=== PATIENT | female | born 1985 | race Caucasian/White ===

== ENCOUNTER 2020-02-06 04:55 | Inpatient (IN) ==
[2020-02-06] MEDS ORDERED: Oxytocin/Ringers Lactate 20 UNITS/1,000 ML BAG IV ONE (05:09)
[2020-02-06] MEDS: RINGER'S SOLUTION,LACTATED 1,000 ML IV PRN ×2 (05:15→06:22)
--- NOTE | 2020-02-06 06:42 | ANES ---
Anesthesia Pre Procedure Eval Vitals/Labs: Last Vital Signs Temp 36.5 C 02/06/20 05:05 Pulse 93 02/06/20 05:05 Resp 18 02/06/20 05:05 BP 116/75 02/06/20 05:05 Pulse Ox 100 02/06/20 05:05 HOME MEDICATIONS ferrous sulfate 325 mg (65 mg iron) tablet,delayed release 325 mg PO DAILY 06/30/19 [Last Taken 02/05/20] prenat.vits,heather,htw-eajq-jwebt 1 tab PO DAILY 06/30/19 [Last Taken 02/05/20] breast pump See Rx Instructions .ROUTE .MEDSUPPLY #1 ea 01/25/20 [Last Taken Unknown] Allergies/Adverse Reactions: Allergies Allergy/AdvReac Type Severity Reaction Status Date / Time bacitracin Allergy RASH Verified 02/06/20 05:37 [From Neosporin Plus] bacitracin zinc Allergy RASH Verified 02/06/20 05:37 [From Neosporin Plus] lidocaine Allergy RASH Verified 02/06/20 05:37 [From Neosporin Plus] neomycin sulfate Allergy RASH Verified 02/06/20 05:37 [From Neosporin Plus] polymyxin B Allergy RASH Verified 02/06/20 05:37 [From Neosporin Plus] polymyxin B sulfate Allergy RASH Verified 02/06/20 05:37 [From Neosporin Plus] pramoxine Allergy RASH Verified 02/06/20 05:37 [From Neosporin Plus] pramoxine HCl Allergy RASH Verified 02/06/20 05:37 [From Neosporin Plus] suture Allergy unknown- Verified 02/06/20 05:37 had to reopen incision - Planned Procedure Planned Procedure: Repeat C Section w/poss abdominal scar revision Medication List Reviewed:: Yes Allergies Verified: Yes Medical History (Last Reviewed 02/06/20 @ 06:40 by Willy Vu CRNA) History of ectopic (Chronic) History of gestational diabetes mellitus (GDM) (Chronic) Body piercing Onset Date: Unknown Wears glasses Onset Date: Unknown Anemia Onset Date: ~2007 Breech presentation Onset Date: 12/03/15 COVID-19 affecting in third trimester Onset Date: 01/19/20 Ectopic Onset Date: 12/26/18 Ectopic (Resolved) s/p left salpingostomy Gestational diabetes Onset Date: 10/01/15 Oligohydramnios Onset Date: 12/03/15 Velamentous insertion of umbilical cord Onset Date: 11/12/15 Vitamin D insufficiency Onset Date: ~2007 Asthma Onset Date: Unknown as a child. unsure if any hospitalizations. last attack as a child. Surgical History (Last Reviewed 02/06/20 @ 06:40 by Willy Vu CRNA) Previous section (Chronic) delivery delivered Onset Date: 12/11/15 d/t breech presentation History of laparoscopy Onset Date: 12/26/18 w/left salpingostomy, excision of ectopic , left ovarian cystotomy Rosine teeth extracted Onset Date: ~2007 Family History (Last Reviewed 02/06/20 @ 06:40 by Willy Vu CRNA) Mother Asthma Diabetes Pre-diabetic Allergies Bronchitis Sister Seizures Grandmother FH: ALS (amyotrophic lateral sclerosis) Grandfather Myocardial infarction Other No pertinent family history - Family Anesthesia History Family History:: no untoward family reactions to anesthesia, no familial bleeding tendencies, no family history of clotting disorders, no family history of premature - Airway/Neck/Teeth Within Normal Limits:: Yes Teeth Condition: intact Neck Exam: full range of motion Mallampatti Score: 2 Thyromental (T-M) distance: > 6 cm Mandibulo Hyoid distance: > 3 cm - Respiratory Respiratory Physical: lungs clear Sleep Apnea currently treated: No Sleep Apnea by current assessment: No - Cardiovascular Tolerate Activity: Fair Heart Sounds: S1 & S2, Regular - Gastrointestinal NPO since: 2400 - Anesthesia Assessment and Plan ASA Class: PS, II Anesthesia Type Plan: Block - Bilateral TAP block for post op pain releif, Spinal
[2020-02-06] MEDS ORDERED: BUPIVACAINE HCL/EPINEPHRINE 50 ML VIAL IJ ONE (06:44)
[2020-02-06] MEDS ORDERED: ceFAZolin SODIUM 1 GM VIAL ONE (07:37)
[2020-02-06] MEDS ORDERED: BUPIVACAINE HCL/PF 10 ML VIAL ONE (08:01)
[2020-02-06] MEDS ORDERED: SENNOSIDES 8.6 MG TABLET PO PRN (09:08)
[2020-02-06] MEDS ORDERED: BISACODYL 10 MG SUPP.RECT RC PRN (09:08)
[2020-02-06] MEDS ORDERED: ONDANSETRON HCL/PF 2 MG/ML VIAL IV PRN (09:08)
[2020-02-06] MEDS ORDERED: SIMETHICONE 80 MG TAB.CHEW PO PRN (09:08)
[2020-02-06] MEDS ORDERED: RINGER'S SOLUTION,LACTATED 1,000 ML IV ONE (09:08)
--- NOTE | 2020-02-06 09:14 | OR ---
Operative Report - Dictated Report Narrative: Indication: 34-year-old 3 para 2 with prior section x2 desires repeat low transverse section. status: Planned Pre Operative Diagnosis: 39 4/7-week intrauterine . Prior section x2. Post Operative Diagnosis: Same. Procedure: Repeat low transverse section. Surgeon: Chris Borjas DO Mixer Pigment: OR Staff Anesthesia: Spinal, TAP block Estimated Blood Loss: 500 mL Urine Output: 140 mL clear urine Fluids Replacement: 1700 mL of crystalloid Drains: Fong to gravity Surgical Complications: None Specimens: Placenta to freezer Findings: Male born at 0817 on 02/06/2020 with Apgars 9 and 9, weighing 3291 g in cephalic presentation. Normal uterus, tubes, ovaries Technique: The patient was taken to the operating room and placed in dorsal supine position with a left lateral tilt. After adequate spinal anesthesia, fong catheter inserted, SCDs placed, and 2 g of Ancef given preoperatively, the abdominal cavity was entered using sharp and blunt dissection. Two rolled laps were placed in the pericolic gutters on either side of the uterus. A transverse incision was made in the lower uterine segment and extended laterally and upwardly with digital traction. Clear fluid was noted upon amniotomy. The infant's head was deep in the pelvis and required a vacuum to deliver. The vacuum was placed at the vertex and pumped to 500 mmHg. There was 1 pop- off. The second application resulted in the delivery of the head. Total vacuum application time was less than 30 seconds. The rest of the infant's body delivered easily. The cord was clamped and cut after approximately 30 seconds and was handed off to awaiting rotary cutter feeder. The placenta was allowed to deliver spontaneously. The uterus was cleared of clot and debris. Uterine incision was closed with 0 Vicryl using a running stitch. A second imbricating layer was placed. 3 bxloch-ev-[id number] sutures were placed on either end and in the middle to provide excellent hemostasis. The rolled laps were removed from the abdominal cavitiy. The peritoneum was closed with a running 3-0 Monocryl. The same suture was used to approximate the rectus and pyramidalis muscles. The fascia was closed with a running 0 Vicryl. The subcutaneous layer was closed with a running 3-0 Monocryl. The same suture was used to approximate the subdermal layer. The skin was closed with a running 4-0 Monocryl and Dermabond. Sponge, lap, needle, and instrument count were correct x 2. Disposition: To post anesthesia care unit in good condition History for MU History for MU Definition: * The number of deliveries resulting in a live the patient experienced prior to current hospitalization * The previous delivery of live twins or any live multiple gestation is considered one live event. *If primagravida or nulliparous is documented select zero for the number of previous live births. Live Events: Live Events: 2
[2020-02-06] MEDS ORDERED: NON-FORMULARY 1 DOSE DOSE (Breast Pump device) SCH (09:15)
--- NOTE | 2020-02-06 09:21 | ANES ---
Anesthesia Procedure Note Procedure Note: ANESTHESIA PROCEDURE NOTE Date of Procedure: 02/06/2020 Time of procedure: 9:10 AM. Performed by: MARYURI Licea CRNA, MSN Patient Safety Tech: Juliet Montgomery RN. Preprocedure diagnosis: Post section pain. Post procedure diagnosis: Same. Procedure: Bilateral TAP block Indications: Post section pain relief. Findings: See below. Details of the procedure: The patient was brought to PACU and placed in the supine position. The patient was prepped with chlorhexidine and using ultrasound guidance the 3 abdominal muscular planes were identified and lidocaine 1% was infiltrated to the skin of the intended injection site. Under ultrasound guidance the the internal oblique and transverse this abdominis muscle layers were approached with visualization of a 4 inch block needle until the tip of the needle rested in the plane between the muscles. 25 mL bupivacaine 0.25% with 1-200,000 epinephrine was injected and the procedure was repeated on the other side. Please see radiology/ultrasound report for details and images of the procedure. EBL: 0 Fluids: N/A. Specimen: N/A. Post procedure condition: The patient tolerated the procedure well. No complications were noted. Thank you for this consultation. Willy Vu CRNA, ARNP, MSN
--- NOTE | 2020-02-06 09:21 | ANES ---
Post Anesthesia Discharge - Transfer of Care Transfer of Care handoff given to nurse: Yes - Discharge from PACU Discharge from PACU when meets criteria: Yes - more comfortable post TAP
[2020-02-06] MEDS: IBUPROFEN 800 MG TABLET PO PRN ×3 (09:36→22:06)
[2020-02-06] MEDS: oxyCODONE HCL/ACETAMINOPHEN 1 TAB TABLET PO PRN ×4 (09:36→20:10)
--- NOTE | 2020-02-06 10:30 | ANES ---
Post Anesthesia Assessment - Vital Signs Vitals: Last Vital Signs Temp 36.7 C 02/06/20 09:26 Pulse 90 02/06/20 09:26 Resp 18 02/06/20 09:26 BP 132/79 02/06/20 09:26 Pulse Ox 100 02/06/20 09:26 Airway Patency: Normal - Mental Status Level Of Consciousness: Awake, Alert, Appropriate - Pain Level Pain Score: 7 - N/V Assessment Nausea/Vomiting Presence: None Dehydration:: No
[2020-02-06] MEDS ORDERED: NIFEdipine 10 MG CAPSULE PO SCH (16:45)
[2020-02-06] MEDS: ENOXAPARIN SODIUM 40 MG/0.4 ML SYRG SC SCH (17:07)
[2020-02-06] MEDS: DOCUSATE SODIUM 100 MG CAPSULE PO SCH (20:10)
[2020-02-07] MEDS: oxyCODONE HCL/ACETAMINOPHEN 1 TAB TABLET PO PRN ×2 (05:04→14:14)
[2020-02-07] MEDS: IBUPROFEN 800 MG TABLET PO PRN ×2 (05:04→16:43)
[2020-02-07] MEDS ORDERED: ceFAZolin SODIUM 1 GM VIAL IV PRN (06:00)
[2020-02-07] MEDS: PRENATAL VITS96/IRON FUM/FOLIC 1 TAB TABLET PO SCH (09:21)
[2020-02-07] MEDS: DOCUSATE SODIUM 100 MG CAPSULE PO SCH ×2 (09:21→20:49)
[2020-02-07] MEDS: FERROUS SULFATE 325 MG TABLET PO SCH (09:21)
--- NOTE | 2020-02-07 15:28 | PN ---
Subjective - Date and Time Seen Date: 02/07/20 Time: 15:28 Objective - Vitals Vitals: Last Vital Signs Temp 36.4 C 02/07/20 15:09 Pulse 103 H 02/07/20 15:09 Resp 16 02/07/20 15:09 BP 118/71 02/07/20 15:09 Pulse Ox 99 02/07/20 15:09 Patient denies complaints. Tolerating regular diet. Ambulating without difficulty. Pain well controlled. Breast-feeding Lochia wnl. Abdomen - soft, appropriately tender Incision -clean, dry, intact uterus - firm, at umbilicus -1 No calf tenderness Impression: Post op day #1 s/p repeat section. Plan: Continue routine post-operative/ care Cauti Physician Documentation - Urinary Catheter Management Urethral (Oliveira) Date of Insertion: 02/06/20 Time of Insertion: 08:02
[2020-02-07] MEDS: ENOXAPARIN SODIUM 40 MG/0.4 ML SYRG SC SCH (17:45)
[2020-02-08] MEDS: oxyCODONE HCL/ACETAMINOPHEN 1 TAB TABLET PO PRN ×3 (00:20→07:18)
[2020-02-08] MEDS: IBUPROFEN 800 MG TABLET PO PRN ×3 (03:45→22:29)
--- NOTE | 2020-02-08 11:51 | PN ---
Subjective - Date and Time Seen Date: 02/08/20 Time: 10:15 Objective - Vitals Vitals: Last Vital Signs Temp 36.6 C 02/08/20 11:23 Pulse 97 02/08/20 11:23 Resp 18 02/08/20 11:23 BP 112/58 02/08/20 11:23 Pulse Ox 99 02/08/20 11:23 [Patient complains of headache 2-3 times throughout the night and this morning - timing of headache seems to be within an hour of receiving Percocet. Denies visual changes, epigastric pain, or increased swelling. Ambulating well. Tolerating regular diet. Pain well controlled.] Lochia wnl. Abdomen - soft, appropriately tender Incision - [clean, dry, intact] Uterus - firm, at umbilicus -[2] No calf tenderness, DTR-2/4, no clonus, no pitting edema Impression: Post op day #2 s/p repeat section. Headaches possibly due to narcotic medication. Plan: Continue routine post-operative/ care. Patient will stop taking narcotic pain medication and see if her headache returns. Continue to monitor closely for signs/symptoms of preeclampsia. Cauti Physician Documentation - Urinary Catheter Management Urethral (Oliveira) Date of Insertion: 02/06/20 Time of Insertion: 08:02
[2020-02-08] MEDS: FERROUS SULFATE 325 MG TABLET PO SCH (12:28)
[2020-02-08] MEDS: PRENATAL VITS96/IRON FUM/FOLIC 1 TAB TABLET PO SCH (12:28)
[2020-02-08] MEDS: DOCUSATE SODIUM 100 MG CAPSULE PO SCH ×2 (12:28→20:28)
[2020-02-08] MEDS: ENOXAPARIN SODIUM 40 MG/0.4 ML SYRG SC SCH (19:48)
--- NOTE | 2020-02-09 01:20 | DS ---
OB Discharge Summary Delivery Date: 02/06/20 Delivery Time: 08:17 :: 3 Para:: 2 Gestational weeks:: 39 Gestational days:: 2 Intrapartum Procedures: Delivered, Secondary Section, Delivery-Low Transverse, Anesthesia - Spinal Procedures: Other /OP Complications: Spinal Headache - resolved on POD#3 with conservative tx Discharge Diagnosis: Term -Delivered, Rubella Immune, Other - Spinal headache - Discharge Information Date of Discharge: 02/09/20 Hospital Course: Patient was admitted for routine repeat low transverse section which went uneventfully. Her course was complicated by a spinal headache that developed on early postop day #2. Headache resolved with rest, caffeine, and analgesics by the morning of postop day #3. Discharge Location: Home Disposition: Home self-care Condition: Good Referrals: Lita Reyes ARNP [Primary Care Provider] - Activity on Discharge:: Activity as tolerated, Pelvic Rest Discharge Diet: General/regular food Additional Patient Instructions (free text): Jena needs to be seen at [facility] [place] on Thursday02/11/20 @ 10:30AM for a weight and bilirubin check. Jena has a follow up app[place] Santizo [place] [facility] [place] @ 1:[place]. His Weight Today is 6 pounds 5.9 ounces. His Blood Type is O+. His Bilirubin level is 10.7 @ 69 hours of age. Please feed him on demand and at least every 2 hours. Supplement with pumped breastmilk if he won't latch and nurse. Always place him on his back in his own crib or bassinet for sleep. No pillows, blankets, stuffed animals, or bumper pads in his sleep space. [place], Your follow up appt is on 03/01/2020 @ 10:15AM with Dr Borjas for an incision check. Please call with any questions/concerns. [facility] [phone], [facility] [phone], [facility] [phone]. Bad tableComplete Home Medications List: Complete Home Medication List: ferrous sulfate 325 mg (65 mg iron) tablet,delayed release 325 mg PO DAILY 06/30/19 prenat.vits,heather,thc-ewjx-bmpdl 1 tab PO DAILY 06/30/19 breast pump See Rx Instructions .ROUTE .MEDSUPPLY #1 ea 01/25/20 Ibuprofen [Motrin] 200 - 800 mg PO Q6H PRN #100 tab 02/08/20 oxyCODONE HCL/ACETAMINOPHEN [Percocet 5 MG/325 MG] 1 tab PO Q4H PRN #10 tab 02/08/20 oxyCODONE HCL/ACETAMINOPHEN [Percocet 5 MG/325 MG] 1 tab PO Q4H PRN #10 tab 02/09/20 - Plan Discharge to:: Home Follow up in office in:: 2 weeks - [place] Information Weight (Grams): 3,291 Sex: Male Score 1 min: 8 Score 5 min: 9 Infant Complications: Other - Mild feeding and weight loss issues which improved by postop day #3
[2020-02-09] MEDS: IBUPROFEN 800 MG TABLET PO PRN ×2 (07:08→13:03)
[2020-02-09] MEDS: FERROUS SULFATE 325 MG TABLET PO SCH ×2 (07:09→08:15)
[2020-02-09] MEDS: oxyCODONE HCL/ACETAMINOPHEN 1 TAB TABLET PO PRN ×2 (07:09→11:15)
[2020-02-09] MEDS: PRENATAL VITS96/IRON FUM/FOLIC 1 TAB TABLET PO SCH ×2 (07:09→08:15)
[2020-02-09] MEDS: DOCUSATE SODIUM 100 MG CAPSULE PO SCH ×2 (07:09→08:15)
[2020-02-09 08:14] VITALS: BP 118/73
--- NOTE | 2020-02-09 17:32 | PN ---
Subjective - Date and Time Seen Date: 02/09/20 Time: 08:35 Objective - Vitals Vitals: Last Vital Signs Temp 36.9 C 02/09/20 07:05 Pulse 98 02/09/20 07:05 Resp 18 02/09/20 07:05 BP 118/73 02/09/20 07:05 Pulse Ox 100 02/08/20 23:40 Patient had been having positional headaches over the past couple days. Anesthesia was consulted this morning for possible blood patch. Upon their arrival this morning her headache had resolved so no blood patch was performed. Ambulating without difficulty. Tolerating regular diet. Pain well controlled. Lochia wnl. Abdomen - soft, appropriately tender Incision - [clean, dry, intact] Uterus - firm, at umbilicus -[3] No calf tenderness Impression: Post op day #3 s/p repeat section. Spinal headache- resolved Plan: Routine discharge instructions. Avoid strenuous activity or excess activity for the next few days to allow complete healing of spinal headache. Call if headache returns. Cauti Physician Documentation - Urinary Catheter Management Urethral (Oliveira) Date of Insertion: 02/06/20 Time of Insertion: 08:02 Assessment/Plan - Problems/Diagnosis (1) Status post repeat low transverse section Problem: Acute (2) Spinal headache complicating labor and delivery, delivered, Problem: Resolved
== END 2020-02-09 15:30 | disposition home or self-care (01) | DRG 788 ==
LOC: OB 04:55
PROVIDERS: ADMIT Obstetrics & Gynecology; ATTEND Obstetrics & Gynecology